=== PATIENT | male | born 1935 | race Asian ===

== ENCOUNTER 2017-06-28 13:20 | Emergency (ER) | payer MEDICARE, MEDICAID ==
[~2017-06-28] VITALS: Ht 154.9 cm; Wt 57.2 kg
[2017-06-28 13:30] VITALS: BP 155/68
== END 2017-06-28 14:22 | disposition home or self-care (01) ==
LOC: ED 14:18
DX: S41.111D Laceration without foreign body of right upper arm, subsequent encounter (principal); E11.9 Type 2 diabetes mellitus without complications; Z79.01 Long term (current) use of anticoagulants; Z95.0 Presence of cardiac pacemaker; Z98.890 Other specified postprocedural states; X58.XXXD Exposure to other specified factors, subsequent encounter
CPT/HCPCS: 99282

== ENCOUNTER 2017-10-11 02:47 | Emergency (ER) | payer MEDICARE, MEDICAID ==
[~2017-10-11] VITALS: Ht 157.5 cm; Wt 52.6 kg
[~2017-10-11 02:47] MED LIST: AMIO200T42 PO; ASPI-515 PO; ATOR10TA9 PO; CARV-39 PO; ENAL20TA PO; ENAL5TAB PO; SITA100T PO; WARF2.5T PO; WARF2TAB PO
[2017-10-11 03:39] LABS: BASOPHILS # (AUTO) 0.03 x10^3/uL (0-0.1); BASOPHILS % (AUTO) 0 % (0-1); EOSINOPHILS # (AUTO) 0.12 x10^3/uL (0-0.4); EOSINOPHILS % (AUTO) 2 % (1-7); LYMPHOCYTES # (AUTO) 2.13 x10^3/uL (1-3.4); LYMPHOCYTES % (AUTO) 29 % (22-44); MD NO; MEAN CORPUSCULAR HEMOGLOBIN 21.8 pg (27.5-34.5); MEAN CORPUSCULAR HGB CONC 31.9 g/dL (33.2-36.2); MEAN CORPUSCULAR VOLUME 68.3 fL (81-97); MEAN PLATELET VOLUME 8.1 fL (7.4-10.4); MONOCYTES # (AUTO) 0.61 x10^3/uL (0.2-0.8); MONOCYTES % (AUTO) 8 % (2-9); NEUTROPHILS # (AUTO) 4.45 x10^3/uL (1.8-6.8); NEUTROPHILS % (AUTO) 61 % (42-75); PLATELET COUNT 210 x10^3/uL (130-400); RED BLOOD COUNT 5.96 x10^6/uL (4.38-5.82); RED CELL DISTRIBUTION WIDTH 15.8 % (9.4-14.8)
[2017-10-11 03:48] LABS: INTERNATIONAL NORMALIZED RATIO 4.78 (0.93-1.1); PROTHROMBIN TIME 48.2 Seconds (9.6-11.5)
[2017-10-11 03:51] LABS: ALANINE AMINOTRANSFERASE 30 U/L (12-78); ALBUMIN 3.5 g/dL (3.4-5.0); ANION GAP 6 mmol/L (5-15); CALCIUM 8.6 mg/dL (8.5-10.1); CHLORIDE 104 mmol/L (98-107); CREATININE 1.68 mg/dL (0.7-1.3)
[2017-10-11 03:55] LABS: ALKALINE PHOSPHATASE 78 U/L (45-117); BILIRUBIN,TOTAL 0.8 mg/dL (0.2-1.0); TOTAL PROTEIN 7.4 g/dL (6.4-8.2); TROPONIN I < 0.015 ng/mL (0.000-0.045)
[2017-10-11 04:45] VITALS: BP 154/71
[2017-10-14] MEDS ORDERED: BENZ-17 PO (23:53)
== END 2017-10-11 04:47 | disposition home or self-care (01) ==
LOC: ED 03:48
DX: R05 Cough (principal); R79.1 Abnormal coagulation profile
CPT/HCPCS: 36415; 71046; 80053; 83880; 84484; 85025; 85610; 85730; 93005; 99285

== ENCOUNTER 2018-12-14 05:59 | Emergency (ER) | payer MEDICARE, MEDICAID ==
[~2018-12-14] VITALS: Ht 154.9 cm; Wt 57.4 kg
[~2018-12-14 05:59] MED LIST changes: +BENZ-17 PO
[2018-12-14] MEDS ORDERED: METHOCARBAMOL 500 MG TABLET PO ONE (06:30)
[2018-12-14] MEDS ORDERED: METHOCARBAMOL 500 MG TABLET ONE (06:31)
--- NOTE | 2018-12-14 06:33 | NUR ---
pt in gown in [facility]. pt medicated per oct. pt taken to [facility] via [facility].
--- NOTE | 2018-12-14 07:00 | NUR ---
report recieved from PINO Samaniego. Pt returned from xray. No acute distress noted.
[2018-12-14 07:46] VITALS: BP 157/74
== END 2018-12-14 08:24 | disposition home or self-care (01) ==
LOC: ED 07:38
DX: M47.892 Other spondylosis, cervical region (principal); M25.511 Pain in right shoulder; M25.512 Pain in left shoulder; E11.9 Type 2 diabetes mellitus without complications; I48.91 Unspecified atrial fibrillation; I25.10 Atherosclerotic heart disease of native coronary artery without angina pectoris; I10 Essential (primary) hypertension; Z95.0 Presence of cardiac pacemaker
CPT/HCPCS: 72050; 99283

== ENCOUNTER 2019-09-01 19:56 | Observation (INO) | payer MEDICARE, MEDICAID ==
[~2019-09-01] VITALS: Ht 154.9 cm; Wt 62.6 kg
[2019-09-01 20:44] LABS: BASOPHILS # (AUTO) 0.01 x10^3/uL (0-0.1); BASOPHILS % (AUTO) 0 % (0-1); EOSINOPHILS # (AUTO) 0.28 x10^3/uL (0-0.4); EOSINOPHILS % (AUTO) 4 % (1-7); LYMPHOCYTES # (AUTO) 2.63 x10^3/uL (1-3.4); LYMPHOCYTES % (AUTO) 38 % (22-44); MD NO; MEAN CORPUSCULAR HEMOGLOBIN 22.3 pg (27.5-34.5); MEAN CORPUSCULAR HGB CONC 31.6 g/dL (33.2-36.2); MEAN CORPUSCULAR VOLUME 70.6 fL (81-97); MEAN PLATELET VOLUME 9.5 fL (7.4-10.4); MONOCYTES # (AUTO) 0.55 x10^3/uL (0.2-0.8); MONOCYTES % (AUTO) 8 % (2-9); NEUTROPHILS # (AUTO) 3.37 x10^3/uL (1.8-6.8); NEUTROPHILS % (AUTO) 49 % (42-75); PLATELET COUNT 138 x10^3/uL (130-400); RED BLOOD COUNT 5.74 x10^6/uL (4.38-5.82); RED CELL DISTRIBUTION WIDTH 15.5 % (9.4-14.8)
[2019-09-01 20:53] LABS: ALANINE AMINOTRANSFERASE 20 U/L (12-78); ALBUMIN 3.5 g/dL (3.4-5.0); ANION GAP 4 mmol/L (5-15); CALCIUM 8.7 mg/dL (8.5-10.1); CHLORIDE 107 mmol/L (98-107); CREATININE 1.66 mg/dL (0.7-1.3)
[2019-09-01 20:57] LABS: ALKALINE PHOSPHATASE 71 U/L (45-117); BILIRUBIN,TOTAL 0.7 mg/dL (0.2-1.0); TOTAL PROTEIN 7.2 g/dL (6.4-8.2); TROPONIN I < 0.015 ng/mL (0.000-0.045)
[2019-09-01] MEDS ORDERED: SODIUM CHLORIDE 0.9% 1,000ML IVBOLUS ONE (21:30)
[2019-09-01] MEDS ORDERED: SODIUM CHLORIDE FLUSH 10ML SYR IVF ONE (21:30)
[2019-09-01 22:24] LABS: MICROSCOPIC NOT IND
[2019-09-01 22:27] LABS: CULTURE INDICATED? NO
[2019-09-01 22:50] LABS: INTERNATIONAL NORMALIZED RATIO 2.96 (0.93-1.1)
[2019-09-01 23:00] LABS: PROTHROMBIN TIME 31.7 Seconds (9.6-11.5)
--- NOTE | 2019-09-01 23:15 | NUR ---
PT WITH C/O WEAKNESS "ALL OVER" AND CP/SOB THAT HAPPENED YESTERDAY BUT NO CP OR SOB TODAY. ALSO PT C/O LOW BP THAT HE REPORTS FROM HIS MONITOR AT HOME. DENIES SYMPTOMS OF LOW BP. PT IN NO ACUTE DISTRESS. AT BEDSIDE. PT TO BE ADMITTED.
[2019-09-01 23:34] LABS: INTERNATIONAL NORMALIZED RATIO 2.99 (0.93-1.1); PROTHROMBIN TIME 32.1 Seconds (9.6-11.5)
[2019-09-01] MEDS ORDERED: SODIUM CHLORIDE 0.9% 1,000 ML IV SCH (23:40)
[2019-09-02] MEDS ORDERED: ACETAMINOPHEN 325 MG TABLET PO PRN
[2019-09-02] MEDS ORDERED: ONDANSETRON 2MG/ML, 2ML IVPush PRN
[2019-09-02 00:47] VITALS: BP 109/61
[2019-09-02 05:10] LABS: ANION GAP 6 mmol/L (5-15); CALCIUM 8.2 mg/dL (8.5-10.1); CHLORIDE 115 mmol/L (98-107); CREATININE 1.32 mg/dL (0.7-1.3)
[2019-09-02 05:13] LABS: INTERNATIONAL NORMALIZED RATIO 2.86 (0.93-1.1); PROTHROMBIN TIME 30.6 Seconds (9.6-11.5)
[2019-09-02 05:14] LABS: TROPONIN I < 0.015 ng/mL (0.000-0.045)
[2019-09-02 05:18] LABS: BASOPHILS # (AUTO) 0.03 x10^3/uL (0-0.1); BASOPHILS % (AUTO) 1 % (0-1); EOSINOPHILS # (AUTO) 0.36 x10^3/uL (0-0.4); EOSINOPHILS % (AUTO) 6 % (1-7); LYMPHOCYTES # (AUTO) 2.67 x10^3/uL (1-3.4); LYMPHOCYTES % (AUTO) 45 % (22-44); MD NO; MEAN CORPUSCULAR HGB CONC 31.2 g/dL (33.2-36.2); MEAN CORPUSCULAR VOLUME 70.5 fL (81-97); MEAN PLATELET VOLUME 10.9 fL (7.4-10.4); MONOCYTES # (AUTO) 0.41 x10^3/uL (0.2-0.8); MONOCYTES % (AUTO) 7 % (2-9); NEUTROPHILS # (AUTO) 2.42 x10^3/uL (1.8-6.8); NEUTROPHILS % (AUTO) 41 % (42-75); PLATELET COUNT 135 x10^3/uL (130-400); RED CELL DISTRIBUTION WIDTH 15.6 % (9.4-14.8)
[2019-09-02] MEDS ORDERED: CARVEDILOL 25 MG TABLET PO SCH (06:00)
[2019-09-02] MEDS ORDERED: LEVOTHYROXINE 25 MCG TABLET PO SCH (06:00)
[2019-09-02] MEDS: INSULIN LISPRO 100 UNITS/ML, PEN SQ-INSULIN SCH ×3 (07:47→16:20)
[2019-09-02 08:50] VITALS: BP 128/71
[2019-09-02] MEDS ORDERED: ISOSORBIDE MONONITRATE ER 30 MG TABLET PO SCH (09:00)
[2019-09-02] MEDS ORDERED: LOSARTAN 50MG TABLET PO SCH (09:00)
[2019-09-02] MEDS ORDERED: ASPIRIN 81 MG TABLET EC PO SCH (09:00)
[2019-09-02 09:14] LABS: % IRON SATURATION 36 % (20-55); IRON LEVEL 86 mcg/dL (65-175); TOTAL IRON BINDING CAPACITY 239 mcg/dL (250-450)
[2019-09-02] MEDS ORDERED: REGADENOSON 0.4 MG/5 ML SYRINGE ONE (09:23)
[2019-09-02 13:45] VITALS: BP 140/75
[2019-09-02] MEDS ORDERED: LOSA50TA2 PO (16:25)
[2019-09-02] MEDS ORDERED: SITA25TA PO (16:25)
[2019-09-02] MEDS ORDERED: ISOS30TA8 PO (16:25)
[2019-09-02] MEDS ORDERED: LEVO25TA2 PO (16:25)
[2019-09-02] MEDS ORDERED: OMEP20TA62 PO (16:25)
[2019-09-02] MEDS ORDERED: CARV25TA12 PO (16:25)
[2019-09-02] MEDS ORDERED: WARFARIN 2 MG TABLET PO-COUM SCH (18:00)
[2019-09-02] MEDS ORDERED: ATORVASTATIN 20 MG TABLET PO SCH (21:00)
== END 2019-09-02 17:53 | disposition home or self-care (01) ==
LOC: ED 22:11 → EDIP 22:41 → INTOOBSV 22:41 → 5SO 23:58
PROVIDERS: ADMIT Internal Medicine; ATTEND Internal Medicine
DX: R07.89 Other chest pain (principal); E11.9 Type 2 diabetes mellitus without complications; I48.91 Unspecified atrial fibrillation; I25.110 Atherosclerotic heart disease of native coronary artery with unstable angina pectoris; I10 Essential (primary) hypertension; E78.5 Hyperlipidemia, unspecified; M19.90 Unspecified osteoarthritis, unspecified site; Z79.82 Long term (current) use of aspirin; Z79.84 Long term (current) use of oral hypoglycemic drugs; Z79.01 Long term (current) use of anticoagulants; Z95.1 Presence of aortocoronary bypass graft; Z95.0 Presence of cardiac pacemaker; Z79.899 Other long term (current) drug therapy
CPT/HCPCS: 36415; 71046; 78452; 80048; 80053; 81003; 82962; 83540; 83550; 84484; 85025; 85610; 93005; 93017; 93306; 96360; 96361; 99284; A9502; C9898; G0378; J2785; J7030

== ENCOUNTER 2019-09-12 13:52 | Inpatient (IN) | payer MEDICARE, MEDICAID ==
[~2019-09-12] VITALS: Ht 154.9 cm; Wt 59.2 kg
[~2019-09-12 13:52] MED LIST changes: +CARV25TA12 PO; +ISOS30TA8 PO; +LEVO25TA2 PO; +LOSA50TA2 PO; +OMEP20TA62 PO; +SITA25TA PO
[2019-09-12] MEDS ORDERED: SODIUM CHLORIDE FLUSH 10ML SYR IVF ONE (14:00)
[2019-09-12 14:29] LABS: BASOPHILS # (AUTO) 0.04 x10^3/uL (0-0.1); BASOPHILS % (AUTO) 1 % (0-1); EOSINOPHILS % (AUTO) 5 % (1-7); LYMPHOCYTES % (AUTO) 39 % (22-44); MD NO; MEAN CORPUSCULAR HEMOGLOBIN 22.7 pg (27.5-34.5); MEAN CORPUSCULAR HGB CONC 32.7 g/dL (33.2-36.2); MEAN CORPUSCULAR VOLUME 69.4 fL (81-97); MEAN PLATELET VOLUME 10.9 fL (7.4-10.4); MONOCYTES # (AUTO) 0.49 x10^3/uL (0.2-0.8); MONOCYTES % (AUTO) 8 % (2-9); NEUTROPHILS # (AUTO) 3.06 x10^3/uL (1.8-6.8); NEUTROPHILS % (AUTO) 48 % (42-75); PLATELET COUNT 148 x10^3/uL (130-400); RED BLOOD COUNT 5.57 x10^6/uL (4.38-5.82); RED CELL DISTRIBUTION WIDTH 15.6 % (9.4-14.8)
[2019-09-12 14:44] LABS: ALANINE AMINOTRANSFERASE 20 U/L (12-78); ALBUMIN 3.2 g/dL (3.4-5.0); ANION GAP 9 mmol/L (5-15); CALCIUM 8.3 mg/dL (8.5-10.1); CHLORIDE 108 mmol/L (98-107); INTERNATIONAL NORMALIZED RATIO 3.24 (0.93-1.1); PROTHROMBIN TIME 34.8 Seconds (9.6-11.5)
--- NOTE | 2019-09-12 14:47 | NUR ---
PT WC'D TO ROOM 17 W/ C/O JADE AND WEAKNESS X 1 DAY. PT BP NOTED TO BE LOW AT HOME "80/74" AND CAME TO ED. PT STATES NO CHANGES IN MEDICATIONS X 3 MONTHS BUT IS WORRIED PT IS BEING OVERMEDICATED. PT TAKES BP MEDS AT [facility]. TAKES AMLODIPINE AND METOPROLOL. PT RESTING ON GURNEY. MONITORS APPLIED. BP NOTED TO BE LOW. PIV INITIATED AND IVF STARTED. WARM BLANKET PROVIDED.
[2019-09-12 14:49] LABS: ALKALINE PHOSPHATASE 80 U/L (45-117); BILIRUBIN,TOTAL 0.7 mg/dL (0.2-1.0); TROPONIN I < 0.015 ng/mL (0.000-0.045)
--- NOTE | 2019-09-12 14:50 | NUR ---
PT AND FAMILY AWARE OF NEED FOR UA. URINAL LEFT AT BEDSIDE.
[2019-09-12] MEDS ORDERED: SODIUM CHLORIDE 0.9%, 500ML IVBOLUS ONE ×2 (15:00)
--- NOTE | 2019-09-12 15:21 | NUR ---
ERP AT BEDSIDE ASSESSING PT. SBP REMAINS IN THE 80'S.
[2019-09-12] MEDS ORDERED: NITR0.4T28 SL (15:37)
[2019-09-12] MEDS ORDERED: ISOS20TA3 PO (15:37)
[2019-09-12] MEDS ORDERED: CHOL40002 PO (15:37)
[2019-09-12] MEDS ORDERED: AMLO10TA8 PO (15:37)
[2019-09-12] MEDS ORDERED: TIMO5DRO37 EACHEYE (15:37)
--- NOTE | 2019-09-12 15:52 | NUR ---
PT AWARE OF POC FOR ADMIT.
--- NOTE | 2019-09-12 16:46 | NUR ---
PT SLEEPING ON CARLOS. NADN. AMIN.
[2019-09-12 16:47] LABS: MICROSCOPIC NOT IND
[2019-09-12 16:50] LABS: CULTURE INDICATED? NO
--- NOTE | 2019-09-12 17:55 | NUR ---
PT SLEEPING ON CARLOS. NADN. AMIN.
[2019-09-12] MEDS ORDERED: hydrALAzine 20 MG/ML, 1ML IVPush PRN (18:00)
[2019-09-12] MEDS ORDERED: NITROGLYCERIN SINGLE TAB 0.4 MG SL PRN (18:00)
[2019-09-12] MEDS ORDERED: DOCUSATE 100 MG CAPSULE PO PRN (18:00)
[2019-09-12] MEDS ORDERED: OXYcodone IR 5MG TABLET PO PRN (18:00)
[2019-09-12] MEDS ORDERED: POLYETHYLENE GLYCOL 17 GM PACKET PO PRN (18:00)
[2019-09-12] MEDS ORDERED: ACETAMINOPHEN 325 MG TABLET PO PRN (18:00)
[2019-09-12] MEDS ORDERED: BISACODYL 10 MG SUPP PR PRN (18:00)
[2019-09-12] MEDS ORDERED: PROMETHAZINE 25 MG/ML, 1ML IM PRN (18:00)
[2019-09-12] MEDS ORDERED: ONDANSETRON 2MG/ML, 2ML IVPush PRN (18:00)
[2019-09-12] MEDS ORDERED: ONDANSETRON ODT 4 MG PO PRN (18:00)
[2019-09-12] MEDS ORDERED: morphine SULFATE 10 MG/ML, 1ML IVPush PRN (18:00)
--- NOTE | 2019-09-12 18:21 | NUR ---
SPOKE W/ ERP DR. SANCHEZ IN REGARDS TO PT'S CXR. PER ERP NO NEED FOR ABX AT THIS TIME.
[2019-09-12 18:39] LABS: FREE T4 (FREE THYROXINE) 1.49 ng/dL (0.76-1.46)
[2019-09-12] MEDS ORDERED: WARFARIN 2 MG TABLET PO-COUM ONE (19:30)
[2019-09-12] MEDS: SODIUM CHLORIDE 0.9% 1,000 ML IV SCH (19:52)
[2019-09-12 19:56] VITALS: BP 116/62
[2019-09-12] MEDS: CARVEDILOL 25 MG TABLET PO SCH (20:25)
[2019-09-12] MEDS: ATORVASTATIN 20 MG TABLET PO SCH (20:27)
[2019-09-12 21:36] VITALS: BP 116/62
[2019-09-12 22:35] LABS: TROPONIN I < 0.015 ng/mL (0.000-0.045)
[2019-09-12 22:43] LABS: MICROSCOPIC NOT IND
[2019-09-12 22:46] LABS: CULTURE INDICATED? NO
[2019-09-13 01:23] VITALS: BP 111/58
[2019-09-13 01:27] LABS: TROPONIN I < 0.015 ng/mL (0.000-0.045)
[2019-09-13] MEDS: CARVEDILOL 25 MG TABLET PO SCH ×2 (05:34→18:04)
[2019-09-13] MEDS: SODIUM CHLORIDE 0.9% 1,000 ML IV SCH ×3 (05:34→21:01)
[2019-09-13] MEDS: LEVOTHYROXINE 25 MCG TABLET PO SCH (05:34)
[2019-09-13 05:51] LABS: BASOPHILS # (AUTO) 0.04 x10^3/uL (0-0.1); BASOPHILS % (AUTO) 1 % (0-1); EOSINOPHILS # (AUTO) 0.27 x10^3/uL (0-0.4); EOSINOPHILS % (AUTO) 5 % (1-7); LYMPHOCYTES # (AUTO) 1.85 x10^3/uL (1-3.4); LYMPHOCYTES % (AUTO) 34 % (22-44); MD NO; MEAN CORPUSCULAR HEMOGLOBIN 22.2 pg (27.5-34.5); MEAN CORPUSCULAR HGB CONC 31.8 g/dL (33.2-36.2); MEAN CORPUSCULAR VOLUME 69.8 fL (81-97); MEAN PLATELET VOLUME 11.2 fL (7.4-10.4); MONOCYTES # (AUTO) 0.44 x10^3/uL (0.2-0.8); MONOCYTES % (AUTO) 8 % (2-9); NEUTROPHILS # (AUTO) 2.79 x10^3/uL (1.8-6.8); NEUTROPHILS % (AUTO) 52 % (42-75); PLATELET COUNT 136 x10^3/uL (130-400); RED BLOOD COUNT 5.71 x10^6/uL (4.38-5.82)
[2019-09-13 05:55] LABS: INTERNATIONAL NORMALIZED RATIO 3.85 (0.93-1.1); PROTHROMBIN TIME 41.4 Seconds (9.6-11.5)
[2019-09-13 05:58] LABS: ANION GAP 9 mmol/L (5-15); CALCIUM 8.7 mg/dL (8.5-10.1); CHLORIDE 116 mmol/L (98-107)
[2019-09-13 06:04] LABS: ALANINE AMINOTRANSFERASE 15 U/L (12-78); ALKALINE PHOSPHATASE 65 U/L (45-117); BILIRUBIN,TOTAL 0.8 mg/dL (0.2-1.0); CHOL/HDL RATIO 2.3; CHOLESTEROL, TOTAL 107 mg/dL (140-239); CREATININE 1.51 mg/dL (0.7-1.3); HDL CHOL % 44 % (26-37); HDL CHOLESTEROL (DIRECT) 47 mg/dL (40-60); LDL CHOLESTEROL,CALCULATED 49 mg/dL (54-169); TOTAL PROTEIN 6.6 g/dL (6.4-8.2); TRIGLYCERIDES 55 mg/dL (50-200); VLDL CHOLESTEROL 11 mg/dL (0-25)
[2019-09-13 06:24] VITALS: BP 120/54
[2019-09-13] MEDS ORDERED: HOLD COUMADIN MC PRN (08:00)
[2019-09-13] MEDS: ASPIRIN 81 MG TABLET EC PO SCH (08:18)
[2019-09-13] MEDS: OMEPRAZOLE 20 MG CAPSULE.DR PO SCH (08:18)
[2019-09-13] MEDS: ISOSORBIDE MONONITRATE ER 30 MG TABLET PO SCH (08:18)
[2019-09-13] MEDS: CHOLECALCIFEROL 1,000 UNIT TABLET PO SCH (08:18)
[2019-09-13] MEDS ORDERED: SODIUM CHLORIDE 0.9% 1,000 ML IV SCH (10:30)
[2019-09-13 11:13] LABS: BASOPHILS # (AUTO) 0.04 x10^3/uL (0-0.1); BASOPHILS % (AUTO) 1 % (0-1); EOSINOPHILS # (AUTO) 0.31 x10^3/uL (0-0.4); EOSINOPHILS % (AUTO) 6 % (1-7); LYMPHOCYTES # (AUTO) 2.24 x10^3/uL (1-3.4); LYMPHOCYTES % (AUTO) 39 % (22-44); MD NO; MEAN CORPUSCULAR HEMOGLOBIN 22.3 pg (27.5-34.5); MEAN CORPUSCULAR HGB CONC 31.7 g/dL (33.2-36.2); MEAN CORPUSCULAR VOLUME 70.4 fL (81-97); MEAN PLATELET VOLUME 11.4 fL (7.4-10.4); MONOCYTES # (AUTO) 0.52 x10^3/uL (0.2-0.8); MONOCYTES % (AUTO) 9 % (2-9); NEUTROPHILS # (AUTO) 2.57 x10^3/uL (1.8-6.8); NEUTROPHILS % (AUTO) 45 % (42-75); PLATELET COUNT 141 x10^3/uL (130-400); RED BLOOD COUNT 5.53 x10^6/uL (4.38-5.82); RED CELL DISTRIBUTION WIDTH 15.6 % (9.4-14.8)
[2019-09-13 11:23] LABS: ALANINE AMINOTRANSFERASE 14 U/L (12-78); ALBUMIN 2.9 g/dL (3.4-5.0); ANION GAP 9 mmol/L (5-15); CALCIUM 8.6 mg/dL (8.5-10.1); CHLORIDE 115 mmol/L (98-107); CREATININE 1.49 mg/dL (0.7-1.3)
[2019-09-13 11:25] LABS: ALKALINE PHOSPHATASE 63 U/L (45-117); BILIRUBIN,TOTAL 0.7 mg/dL (0.2-1.0); TOTAL PROTEIN 6.5 g/dL (6.4-8.2)
[2019-09-13 13:13] VITALS: BP_SYST 107; BP_SYST 123; BP_SYST 135; BP_DIAS 65; BP_DIAS 68; BP_DIAS 75
[2019-09-13] MEDS ORDERED: MAGNESIUM SULFATE PMX 2GM/50ML 50 ML IV ONE (16:00)
[2019-09-13 18:29] VITALS: BP 129/62
[2019-09-13 18:30] VITALS: BP 128/73
[2019-09-13 18:31] VITALS: BP 157/76
[2019-09-13] MEDS: ATORVASTATIN 20 MG TABLET PO SCH (21:01)
[2019-09-14 01:03] VITALS: BP 148/71
[2019-09-14] MEDS: CARVEDILOL 25 MG TABLET PO SCH (05:30)
[2019-09-14] MEDS: LEVOTHYROXINE 25 MCG TABLET PO SCH (05:30)
[2019-09-14 05:57] LABS: INTERNATIONAL NORMALIZED RATIO 3.41 (0.93-1.1); PROTHROMBIN TIME 36.6 Seconds (9.6-11.5)
[2019-09-14 06:00] LABS: ANION GAP 8 mmol/L (5-15); CHLORIDE 116 mmol/L (98-107); CREATININE 1.73 mg/dL (0.7-1.3)
[2019-09-14 07:23] VITALS: BP 157/72
[2019-09-14] MEDS: ISOSORBIDE MONONITRATE ER 30 MG TABLET PO SCH (08:49)
[2019-09-14] MEDS: CHOLECALCIFEROL 1,000 UNIT TABLET PO SCH (08:49)
[2019-09-14] MEDS: OMEPRAZOLE 20 MG CAPSULE.DR PO SCH (08:49)
[2019-09-14] MEDS: ASPIRIN 81 MG TABLET EC PO SCH (08:49)
[2019-09-14 11:36] VITALS: BP_SYST 166; BP_SYST 183; BP_SYST 190; BP_DIAS 64; BP_DIAS 79; BP_DIAS 87
[2019-09-14 12:04] VITALS: BP 147/70
[2019-09-14] MEDS ORDERED: WARFARIN 1 MG TABLET PO-COUM SCH (18:00)
== END 2019-09-14 14:44 | disposition home or self-care (01) | DRG 683 ==
LOC: ED 15:01 → EDIP 15:02 → ED 15:11 → 4WST 18:54 → DCLOUNGE 09-14 14:38
PROVIDERS: ADMIT Internal Medicine; ATTEND Internal Medicine
DX: N17.0 Acute kidney failure with tubular necrosis (principal); E87.2 Acidosis; D68.59 Other primary thrombophilia; I95.2 Hypotension due to drugs; I48.0 Paroxysmal atrial fibrillation; I08.3 Combined rheumatic disorders of mitral, aortic and tricuspid valves; E86.0 Dehydration; D50.9 Iron deficiency anemia, unspecified; E03.9 Hypothyroidism, unspecified; T50.995A Adverse effect of other drugs, medicaments and biological substances, initial encounter; E11.9 Type 2 diabetes mellitus without complications; E78.5 Hyperlipidemia, unspecified; E83.42 Hypomagnesemia; I10 Essential (primary) hypertension; I25.10 Atherosclerotic heart disease of native coronary artery without angina pectoris; I25.82 Chronic total occlusion of coronary artery; I45.10 Unspecified right bundle-branch block; Z87.11 Personal history of peptic ulcer disease; Z95.0 Presence of cardiac pacemaker; Z95.1 Presence of aortocoronary bypass graft; Z79.82 Long term (current) use of aspirin; Z79.899 Other long term (current) drug therapy; Y92.098 Other place in other non-institutional residence as the place of occurrence of the external cause; Z79.84 Long term (current) use of oral hypoglycemic drugs
CPT/HCPCS: 36415; 71045; 80048; 80053; 80061; 81003; 82728; 83036; 83540; 83550; 83735; 84100; 84439; 84443; 84466; 84484; 85025; 85610; 93005; G0378; J3475; J7030; J7040